=== PATIENT | male | born 1985 | race Caucasian/White ===

== ENCOUNTER 2019-10-02 16:04 | Emergency (ER) | payer OTHER ==
[2019-10-02 16:19] VITALS: TEMP 98.2; BMI 31.5
[2019-10-02 18:51] LABS: BASO % 0.5 % (0-2.0); EOS % 1.7 % (0-4.5); HEMATOCRIT 47.1 % (35.4-49); HEMOGLOBIN 15.6 GM/dL (11.7-16.9); MCH 28.5 pg (25.7-33.7); MCHC 33.1 g/dl (32.0-35.9); MEAN PLT VOLUME 10.4 fl (7.5-11.1); MONO % 9.3 % (3.8-10.2); NEUT % 54.5 % (42.8-82.8); PLATELET COUNT 263 K/MM3 (134-434); RBC 5.47 M/mm3 (4.00-5.60); RDW 13.8 % (11.9-15.9); WHITE BLOOD COUNT 5.8 K/mm3 (4.0-10.0)
--- NOTE | 2019-10-02 18:55 | PDOC ---
History of Present Illness - General Chief Complaint: Headache Stated Complaint: SENT BY PCP/HEADACHE Time Seen by Provider: 10/02/19 17:48 History Source: Patient Exam Limitations: No Limitations - History of Present Illness Initial Comments: 10/02/19 18:39 34yo M with no significant PMH presenting with INMAN suddenly starting at maximal intensity after feeling a popping sensation during sex two days ago. INMAN is left sided in the temporal region, associated with photophobia, phonophobia, non- radiating, throbbing in nature, gradually resolving over time. INMAN was worst while he was in the car driving today. Denies fevers, CP, SOB. Has a distant cousin with an aneurysm s/p repair. Vision is not impaired, no electrical sensations, no lacrimation. NKDA Meds: None Past History - Travel Traveled outside of the country in the last 30 days: No Close contact w/someone who was outside of country & ill: No - Past Medical History Allergies/Adverse Reactions: Allergies Allergy/AdvReac Type Severity Reaction Status Date / Time No Known Allergies Allergy Verified 10/02/19 16:19 COPD: No - Psycho Social/Smoking Cessation Hx Smoking History: Never smoked Review of Systems - Review of Systems Able to Perform ROS?: Yes Is the patient limited [place]ian proficient: Yes Constitutional: No: Chills, Fever, Weakness HEENTM: Yes: See HPI. No: Eye Pain, Blurred Vision, Tearing, Recent change in vision, Nose Pain, Nose Congestion, Throat Pain, Difficulty Swallowing Respiratory: No: Cough, Orthopnea, Shortness of Breath, Wheezing Cardiac (ROS): No: Chest Pain, Irregular Heart Rate, Chest Tightness ABD/GI: No: Constipated, Diarrhea, Nausea, Vomiting : No: Burning, Frequency, Incontinence Musculoskeletal: No: Back Pain, Muscle Pain, Muscle Weakness, Neck Pain Integumentary: No: Bruising, Lumps, Pruritus, Rash Neurological: Yes: Headache. No: Numbness, Pre-Existing Deficit, Seizure, Tingling, Weakness, Ataxia, Dizziness Psychiatric: No: Anxiety, Depression Endocrine: No: Increased Thirst, Increased Urine, Change in Weight Hematologic/Lymphatic: No: Anemia, Easy Bleeding All Other Systems: Reviewed and Negative *Physical Exam - Vital Signs Last Vital Signs Temp Pulse Resp BP Pulse Ox 98.2 F 98 H 18 134/72 99 10/02/19 16:16 10/02/19 16:16 10/02/19 16:16 10/02/19 16:16 10/02/19 16:16 - Physical Exam 10/02/19 20:11 Vitals reviewed, AFVSS WDWN man, appears stated age, no acute distress MMM, EOMI, NCAT, no lacrimation, no conjunctival injection, no rash/swelling/ warmth/erythema overlying painful region RRR, nl s1s2, no murmurs appreciated CTABL, normal WOB, no weezes / rales / rhonchi Soft, non-tender, non-distended WWP, no clubbing / cyanosis / edema 2+ Radial and PT pulses CN 2-12 intact, normal sensation and strength throughout, normal gait ED Treatment Course - LABORATORY CBC & Chemistry Diagram: 10/02/19 18:36 10/02/19 18:36 Medical Decision Making - Medical Decision Making 10/02/19 18:57 34yo M with no significant PMH presenting with INMAN suddenly starting at maximal intensity after feeling a popping sensation during sex two days ago. R/o sentinel bleed vs prolonged coatial headache vs first migraine - CT / CTA - Reglan, IV Tylenol - CBC, CMP, Coags - Case c/w Dr. Jenkins, agrees with CT/CTA, outpatient f/u if negative and INMAN resolved, LP if concern remains 10/02/19 20:22 - Labs unremarkable - CT results pending 10/02/19 21:03 - Symptoms resolving, weird sensation overlying left head - Patient with negative CT / CTA, no bleed or aneurysm 10/02/19 22:07 - LP consented, kit opened, patient refused immediately before site preparation - Patient knows risks and benefits of not performing LP - CT and CTA Negative - Symptoms resolved - Agrees to return precautions, follow up with neurology SIMONE - Patient leaving the country on Saturday, advised to be aware of emergency care options in [place] in case of recurrent symptoms Dispo: Home Discharge - Discharge Information Problems reviewed: Yes Clinical Impression/Diagnosis: Headache associated with orgasm Condition: Improved Disposition: HOME - Admission No - Follow up/Referral Referrals: Darnell Jenkins MD [Staff Physician] - - Patient Discharge Instructions Additional Instructions: You were seen and evaluated in the ED for headache. Feel free to return anytime with any new concerns, it was a pleasure to help you. You can continue to take over the counter medications for your headache as directed on the package label. Please follow up 11AM with Dr. Jenkins - his office number and information are included in the provided discharge packet. Return to the ED for any new or concerning findings - these include but are not limited to worsening headache, development of fever/chill, or altered mentation. - Post Discharge Activity
[2019-10-02] MEDS ORDERED: ACETAMINOPHEN 1000 MG/100 ML VIAL (NON FORMULARY) IVPB ONE (18:57)
[2019-10-02] MEDS ORDERED: METOCLOPRAMIDE HCL INJECTION 10 MG/2 ML VIAL IVPB ONE (18:57)
[2019-10-02] MEDS ORDERED: METOCLOPRAMIDE HCL INJECTION 10 MG/2 ML VIAL ONE (19:06)
[2019-10-02] MEDS ORDERED: ACETAMINOPHEN INJECTION 100 ML IVPB ONE (19:07)
[2019-10-02 19:11] LABS: INR 0.95 (0.83-1.09); PROTHROMBIN TIME (PATIENT) 11.2 SEC (9.7-13.0)
[2019-10-02 19:13] LABS: ACTIVATED PTT 31.6 SECONDS (25.2-36.5)
[2019-10-02 19:18] LABS: ALBUMIN 3.9 g/dl (3.4-5.0); BILIRUBIN,TOTAL 0.3 mg/dL (0.2-1); BLOOD UREA NITROGEN 14.3 mg/dL (7-18); CALCIUM 8.6 mg/dL (8.5-10.1); CREATININE 1.3 mg/dL (0.55-1.3); POTASSIUM 4.2 mmol/L (3.5-5.1); TOT PROT 7.4 g/dl (6.4-8.2)
[2019-10-02 22:25] VITALS: BP 130/74; PULSE 85
--- NOTE | 2019-10-02 22:26 | PDOC ---
Documentation entered by Norma Arellano SCRIBE, acting as scribe for Mary Beth Jett MD. Mary Beth Jett MD: This documentation has been prepared by the Adan flores Adrianna, SCRIBE, under my direction and personally reviewed by me in its entirety. I confirm that the documentation accurately reflects all work, treatment, procedures, and medical decision making performed by me. Attending Attestation - Resident Resident Name: Edvin Kulkarni - ED Attending Attestation I have performed the following: I have examined & evaluated the patient, The case was reviewed & discussed with the resident, I agree w/resident's findings & plan, Exceptions are as noted - HPI HPI: The patient is a 34 year old male, with no significant PMH, who presents to the ED for INMAN that began prior to arrival. Patient notes he was having sexual intercouse, when he felt a popping sensation over his left temporal region followed by a headache. Patient notes the headache is most prominent at the left temporal region, is intermittent and throbbing in nature, lasts for an hour at a time (4-5 episodes total following original incident), and has been progressively getting better with motrin. He endorses associated photophobia and phonophobia. Denies any history of similar symptoms, but notes his cousin has had 8 surgeries for a ruptured aneurysm. While in the ED, he notes the headache has resolved but he now endorses numbness where the headache was. Allergies: NKA, NKDA Surgical History: None reported Social History: Denies EtOH, tobacco, or illicit drug use - Physicial Exam PE: GENERAL: Well-appearing, answering all questions appropriately. The patient is in no acute distress. ENT: Ears normal, nares patent, oropharynx clear without exudates. Moist mucous membranes. NECK: Normal range of motion, supple, no nuchal rigidity LUNGS: Breath sounds equal, clear to auscultation bilaterally. No wheezes, and no crackles. HEART: Regular rate and rhythm, normal S1 and S2 without murmur, rub or gallop. ABDOMEN: Soft, nontender, normoactive bowel sounds. No guarding, no rebound. No masses palpable. EXTREMITIES: Normal range of motion, no edema. NEUROLOGICAL: Cranial nerves II through XII grossly intact. Normal speech. No focal neurological deficits. SKIN: Warm, Dry, normal turgor, no rashes or lesions noted. - Critical Care Time Total Critical Care Time: 60 Critical Care Statement: The care of this patient involved high complexity decision making to prevent further life threatening deterioration of the patient 's condition and/or to evaluate & treat vital organ system(s) failure or risk of failure. - Medical Decision Making 10/02/19 22:19 34-year-old male presenting to the emergency department with a complaint of sudden onset thunderclap headache which went to maximal intensity almost immediately in the setting of intercourse. This occurred 2 days ago. Since then he has had waxing and waning headaches. Headache associated with photophobia, phonophobia. Not associated with nausea or vomiting. No fevers chills. No headache. No neck pain. Patient is neurologically intact Patient does have a cousin who had a ruptured intracranial aneurysm status post 8 surgeries 10/02/19 22:23 Laboratory Tests 10/02/19 10/02/19 18:36 18:36 Hgb 15.6 Hct 47.1 BUN 14.3 Creatinine 1.3 CTs demonstrate no xiong aneurysm, no intracranial hemorrhage Case reviewed with Dr. Cote He recommends that if CTs are negative patient can be discharged home and can follow-up with him in the office tomorrow We have reviewed CT scanning with this patient We have also reviewed lumbar puncture with this patient Plan is for LP at this time Patient consented for LP, we were set up to perform LP and patient change his mind stating that he is not comfortable with this procedure I have explained to him the importance of doing this procedure in order to document the presence of possibly a sentinel bleed Patient understands the reason for us wanting to do this procedure He still carries a small risk of he even that happened 2 sousa ago being a sentinel bleed AND a small risk of having an small aneuysm which could rupture This was reviewed with the neurologist Patient will be seen by neurologist tomorrow at 11 AM Patient understands reasons for return IMMEDIATELY to the emergency department Clinical impression: Postcoital headache, initial presentation Headache, initial presentation Discharge - Discharge Information Problems reviewed: Yes Clinical Impression/Diagnosis: Headache associated with orgasm Condition: Improved Disposition: HOME - Admission No - Follow up/Referral Referrals: Darnell Jenkins MD [Staff Physician] - - Patient Discharge Instructions Additional Instructions: You were seen and evaluated in the ED for headache. Feel free to return anytime with any new concerns, it was a pleasure to help you. You can continue to take over the counter medications for your headache as directed on the package label. Please follow up 11AM with Dr. Jenkins - his office number and information are included in the provided discharge packet. Return to the ED for any new or concerning findings - these include but are not limited to worsening headache, development of fever/chill, or altered mentation. - Post Discharge Activity ED Treatment Course - LABORATORY CBC & Chemistry Diagram: 10/02/19 18:36 10/02/19 18:36 - ADDITIONAL ORDERS Additional order review: Laboratory Results 10/02/19 10/02/19 18:36 18:36 PT with INR 11.20 INR 0.95 PTT (Actin FS) 31.6 Sodium 139 Potassium 4.2 Chloride 106 Carbon Dioxide 28 Anion Gap 5 L BUN 14.3 Creatinine 1.3 Est GFR (CKD-EPI)AfAm 81.93 Est GFR (CKD-EPI)NonAf 70.69 Random Glucose 129 H Calcium 8.6 Total Bilirubin 0.3 AST 26 ALT 70 H Alkaline Phosphatase 89 Total Protein 7.4 Albumin 3.9 10/02/19 18:36 RBC 5.47 MCV 86.0 MCHC 33.1 RDW 13.8 MPV 10.4 Neutrophils % 54.5 Lymphocytes % 34.0 Monocytes % 9.3 Eosinophils % 1.7 Basophils % 0.5 - RADIOLOGY Radiograph Interpretation: EXAM#: TYPE/EXAM: RESULT: [id number] CT/HEAD CT WITHOUT CONTRAST Cranial CT without contrast Clinical information given: rule out subarachnoid Impression: No CT evidence of acute intracranial pathology. Reported By: Don Tomlin MD 10/02/19 20:59 EXAM#: TYPE/EXAM: RESULT: [id number] CT/BRAIN CTA [id number] CT/NECK CTABrain CT angiography Neck CT angiography Clinical information given: evaluate for bleed, dissection; left temporal headache Impression: No CT evidence of intracranial or extracranial arterial dissection. If there is high clinical suspicion additional evaluation utilizing catheter angiography may be considered. Reported By: Don Tomlin MD 10/02/19 20:59 - Medications Given in the ED: ED Medications Discontinued Medications Generic Name Dose Route Start Last Admin Trade Name Freq PRN Reason Stop Dose Admin Acetaminophen 1,000 mg 10/02/19 18:57 10/02/19 19:13 Ofirmev Injection - IVPB 10/02/19 18:58 1,000 mg ONCE ONE Administration Metoclopramide HCl 10 mg 10/02/19 18:57 10/02/19 19:26 Reglan Injection - IVPB 10/02/19 18:58 10 mg ONCE ONE Administration
== END 2019-10-02 22:35 | disposition home or self-care (01) ==
LOC: JERFT 16:04 → JER 16:04
PROC: 3E033NZ Introduction of Analgesics, Hypnotics, Sedatives into Peripheral Vein, Percutaneous Approach (ICD-10-PCS; principal; 2019-10-02)
PROC: 3E033GC Introduction of Other Therapeutic Substance into Peripheral Vein, Percutaneous Approach (ICD-10-PCS; 2019-10-02)
DX: G44.82 Headache associated with sexual activity (principal)
CPT/HCPCS: 36415; 70450-TC; 70496-TC; 70498-TC; 80053; 85025; 85610; 85730; 99282-25; J0131; Q9967